=== PATIENT | female | born 1955 | race Caucasian/White ===

== ENCOUNTER 2017-07-08 06:30 | Inpatient (IN) | payer OTHER ==
[~2017-07-08] VITALS: Ht 170.2 cm; Wt 80.3 kg
[2017-07-08] VITALS (10 sets, daily range): BP systolic 137–173; BP diastolic 81–95; PULSE 70–96; TEMP 97.6–98.2
[2017-07-08] MEDS ORDERED: MASON NATURAL2000 IU (07:21)
[2017-07-08] MEDS ORDERED: K-TAB10 (07:21)
[2017-07-08] MEDS ORDERED: PRILOTC (07:22)
[2017-07-08] MEDS ORDERED: PRILOSEC 20MG20 MG PO (07:22)
[2017-07-08] MEDS ORDERED: CALCIUM CITRATE1 TA1 PO (07:23)
[2017-07-08] MEDS ORDERED: EPA FISH OIL1 SGL PO (07:23)
[2017-07-08] MEDS ORDERED: COREG CR20 MG PO (07:24)
[2017-07-08] MEDS ORDERED: ATACAND32 MG PO (07:24)
[2017-07-08] MEDS ORDERED: HCTZ 25MG TAB25 MG PO (07:25)
[2017-07-08] MEDS ORDERED: ZOCOR 20MG20 MG PO (07:25)
[2017-07-08] MEDS ORDERED: ZYRTEC 10MG10 MG PO (07:26)
[2017-07-08] MEDS ORDERED: ALDACTONE 25MG25 M1 PO (07:26)
[2017-07-08] MEDS ORDERED: ASTELIN NASAL S34 ML NS (07:27)
[2017-07-08] MEDS ORDERED: FLOVENT 220MCG7.9 GM IH (07:28)
[2017-07-08] MEDS ORDERED: PROAIR HFA0.09 MG/AC IH (07:28)
[2017-07-08] MEDS ORDERED: FLONASEALLERGY NS (07:29)
[2017-07-08] MEDS ORDERED: VOLTAREN GEL 1%1 TU TP (07:30)
[2017-07-08] MEDS ORDERED: ATIVAN 1MG T1 MG/TAB PO (07:33)
[2017-07-08] MEDS ORDERED: VITAMIN B125000 MCG PO (07:34)
[2017-07-08] MEDS ORDERED: MAGNESIUM500 MG PO (07:34)
[2017-07-08] MEDS ORDERED: VITAMIN B-6100 MG (07:35)
[2017-07-08] MEDS ORDERED: ACIDOPHILIS (07:35)
[2017-07-08] MEDS ORDERED: THE MEDICINE S200 M2 PO (07:36)
[2017-07-08] MEDS ORDERED: VITAMINC1000TA (07:36)
[2017-07-08] MEDS ORDERED: MULTI VITAMINS1 TAB PO (07:37)
[2017-07-09 00:42] VITALS: BP 134/82; PULSE 85; TEMP 98.1
[2017-07-09 05:59] VITALS: BP 125/72; PULSE 77; TEMP 97.8
[2017-07-09 09:56] VITALS: BP 122/67; PULSE 68; TEMP 98.3
[2017-07-09 13:14] VITALS: BP 129/78; PULSE 67; TEMP 97.2
== END 2017-07-09 17:36 | disposition home or self-care (01) | DRG 328 ==
LOC: SDCO 06:30 → JCC 06:30 → SDCO 08:30 → JCC 13:21 → SDCO 14:00 → JCC 14:00
PROVIDERS: Surgery
PROC: 0BUR4JZ (ICD-10-PCS; 2017-07-08)
PROC: 0DV44ZZ Restriction of Esophagogastric Junction, Percutaneous Endoscopic Approach (ICD-10-PCS; 2017-07-08)
PROC: 0DS64ZZ Reposition Stomach, Percutaneous Endoscopic Approach (ICD-10-PCS; 2017-07-08)
PROC: 8E0W4CZ Robotic Assisted Procedure of Trunk Region, Percutaneous Endoscopic Approach (ICD-10-PCS; 2017-07-08)
PROC: 0BUS4JZ (ICD-10-PCS; principal; 2017-07-08 08:30)
DX: K21.9 Gastro-esophageal reflux disease without esophagitis (principal); K44.9 Diaphragmatic hernia without obstruction or gangrene; I10 Essential (primary) hypertension; J45.20 Mild intermittent asthma, uncomplicated
CPT/HCPCS: OP; A9284; C1713; C1781; J0690; J1100; J1885; J1956; J2405; J2704; J2710; J2765; J3010; J7120